=== PATIENT | female | born 1975 | race Caucasian/White ===

== ENCOUNTER → 2021-01-22 08:10 | Outpatient (CLI) | payer BC, SELFPAY ==
--- NOTE | 2021-01-22 08:16 | MM_ITS ---
PROCEDURE INFORMATION: Exam: MG Bilateral Screening 3D Mammography Exam date and time: 01/22/2021 8:16 AM Age: 45 years old Clinical indication: Screening mammogram TECHNIQUE: Imaging protocol: Bilateral screening tomosynthesis and 2D mammography including computer-aided detection (CAD) when performed. COMPARISON: No relevant prior studies available. FINDINGS: MAMMOGRAPHY: Breast composition: The breast tissue is heterogeneously dense, which may obscure small masses. Mass: None. Architectural distortion: No new or suspicious architectural distortion. Calcifications: No new or suspicious calcifications are present Asymmetric density: No new or suspicious asymmetric density is present Skin thickening: None. Axillary adenopathy: None. IMPRESSION: No mammographic evidence of malignancy. Recommend annual screening mammography unless otherwise clinically indicated. ASSESSMENT: BI-RADS category 1: Negative
== END ==
PROVIDERS: PCP Family Medicine; Visit Provider Obstetrics & Gynecology
DX: Z12.31 Encounter for screening mammogram for malignant neoplasm of breast (principal)
CPT/HCPCS: 77063; 77067

== ENCOUNTER → 2021-04-29 08:11 | Outpatient (CLI) | payer BC, SELFPAY | PROVIDERS: PCP Family Medicine; Visit Provider Nurse Practitioner | DX: U07.1 COVID-19 (principal) | CPT/HCPCS: C9803; U0003; U0005 ==

== ENCOUNTER → 2021-05-12 08:15 | Outpatient (POV) | payer BC, SELFPAY | PROVIDERS: Visit Provider Dermatology | DX: Z00.00 Encounter for general adult medical examination without abnormal findings (principal) ==

== ENCOUNTER → 2021-05-18 08:03 | Outpatient (CLI) | payer BC, SELFPAY | PROVIDERS: Visit Provider Nurse Practitioner | DX: Z20.822 Contact with and (suspected) exposure to COVID-19 (principal) | CPT/HCPCS: C9803; U0003; U0005 ==

== ENCOUNTER 2021-05-23 17:35 | Emergency (ER) | payer BC, SELFPAY ==
[2021-05-23 17:40] VITALS: BP 151/101; PULSE 96; RESP 24; TEMP 37.1; O2SAT 95; BMI 27.4
[2021-05-23 17:49] VITALS: BP 151/101; PULSE 96; RESP 24; TEMP 37.1; O2SAT 95
--- NOTE | 2021-05-23 17:49 | HMH.EDUTC ---
[facility] [place] Clinical Impression: Acute bronchitis Qualifiers: Bronchitis organism: unspecified organism Qualified Code(s): J20.9 - Acute bronchitis, unspecified Disposition: Home, Self-Care Condition on Discharge: Good Instructions: Acute Bronchitis Additional Instructions: Start antibiotic today. Be sure to complete entire prescription even if feeling better Tylenol and ibuprofen as needed for pain or fever Humidifier/vaporizer/hot steamy shower Follow-up with primary care this week. Follow-up immediately in the ER of the [facility] for new or worsening symptoms or no noticeable improvement over the next 48-72 hours. Stop smoking Start steroids today. Helps with inflammation therefore coughing and wheezing. Follow directions on package. Prescriptions: Albuterol Sulfate [Albuterol Sulfate Hfa] 6.7 gm IH Q4-6H 14 Days #1 each Transmission Status: Pending to [facility] Benzonatate [Benzonatate 100mg cap] 100 mg PO BID PRN 7 Days #14 cap PRN Reason: Cough Transmission Status: [facility] predniSONE [Prednisone 20mg Tab] 20 mg PO BID #10 tab Transmission Status: [facility] Azithromycin [Zithromax 250mg tab] 250 mg PO DIRECTED #6 tab Transmission Status: [facility] Referrals: Leonie Vazquez [Primary Care Provider] - Time of Disposition: 17:55 Medical Decision Making - Rajat Inquiry Pt receiving controlled substance: No Vital Signs: 05/23/21 17:40 Temperature 98.7 F Temperature Source Oral Pulse Rate [Left Brachial] 96 H Respiratory Rate 24 Blood Pressure [Left Arm] 151/101 H Blood Pressure Mean [Left Arm] 117 Blood Pressure Source [Left Arm] Automatic Cuff Blood Pressure Position [Left Arm] Sitting 02 Sat by Pulse Oximetry 95 Oxygen Delivery Method Room Air [facility] [place] - General Chief complaint: [facility] Stated complaint: head congestion, sinus Time Seen by Provider: 05/23/21 17:49 Mode of Arrival: Ambulatory Source of Information: Patient Limitations: No Limitations Description of Symptoms (Recalled from Triage Doc. by RN): PATIENT C/O COUGH AND CONGESTION SINCE LAST TUESDAY, STATES IT HAS GOTTEN WORSE OVER PAST 2 DAYS HEENT Symptoms (Recalled from RN notes): Yes Resp Symptoms (Recalled from RN notes): Yes Skin Symptoms (Recalled from RN notes): No MS Symptoms (Recalled from RN notes): No Functional Status (Recalled from RN notes): WNL - History of Present Illness Provider Complaint: 45 yr old female presents for coughing up yellow/green sputum,congestion, sinus pressure and sore throat since last sat - Related Data Home Medications Medication Instructions Recorded Confirmed Valacyclovir HCl [Valtrex] 500 mg PO DAILYP PRN 05/23/21 05/23/21 Previous Rx's Medication Instructions Recorded Albuterol Sulfate [Albuterol 6.7 gm IH Q4-6H 14 Days #1 each 05/23/21 Sulfate Hfa] Azithromycin [Zithromax 250mg 250 mg PO DIRECTED #6 tab 05/23/21 tab] Benzonatate [Benzonatate 100mg 100 mg PO BID PRN 7 Days #14 cap 05/23/21 cap] predniSONE [Prednisone 20mg 20 mg PO BID #10 tab 05/23/21 Tab] Allergies Allergy/AdvReac Type Severity Reaction Status Date / Time No Known Allergies Allergy Verified 05/23/21 17:48 - Worker's Comp Is this a Worker's Comp case?: No H History - Hepatitis A Screen Drug use history?: No High risk sexual behaviors?: No History of sexually transmitted infection?: No Currently employed?: No Childcare worker?: No Do you have indoor plumbing?: Yes Do you have electricity?: Yes Attestation statement:: This patient has been screened for Hepatitis A risk factors. I have reviewed the patient's past medical history: Yes ROS Obtained: Yes Systems reviewed as appropriate & no additional complaints - Constitutional Constitutional: Reports system reviewed and no additional complaints, except as docu, Denies fatigue, Denies fever(
== END 2021-05-23 18:00 | disposition home or self-care (01) ==
PROVIDERS: Emergency Provider Nurse Practitioner Family; PCP Family Medicine
DX: J40 Bronchitis, not specified as acute or chronic (principal)
CPT/HCPCS: 99213; G0463

== ENCOUNTER 2021-07-27 13:31 | Emergency (ER) | payer BC, SELFPAY ==
[2021-07-27 13:35] VITALS: BP 150/93; PULSE 93; RESP 18; TEMP 36.7; O2SAT 100; BMI 27.4
--- NOTE | 2021-07-27 13:59 | HMH.EDUTC ---
[facility] [place] Disposition Clinical Impression: Acute bronchitis Qualifiers: Bronchitis organism: unspecified organism Qualified Code(s): J20.9 - Acute bronchitis, unspecified Sinusitis Qualifiers: Sinusitis location: unspecified location Chronicity: unspecified Qualified Code(s): J32.9 - Chronic sinusitis, unspecified Disposition: Home, Self-Care Condition on Discharge: Good Instructions: Sinusitis, Acute Bronchitis, DI for Sinusitis, DI for Acute Bronchitis Additional Instructions: ? Start antibiotic today. Be sure to complete entire prescription even if feeling better ? Monitor temp. Tylenol every 4 hours as needed and / or ibuprofen every 6 hours as needed ( As long as your primary care physician has told you that it ok to take both. For fever/aches/pains ER if no less than 101 despite Tylenol or Motrin ? Humidifier/vaporizer or hot steamy shower ? Inhaler every 4-6 hours as needed like we discussed. If unsure how to use it, ask pharmacist to demonstrate how. Should help open airways and improve cough, wheezing, and shortness of breath *Tessalon Perles will not cause drowsiness but use at bedtime to help stop cough so that you may get some rest. *Start steroid today. Helps with inflammation therefore, cough and wheezing. Follow directions on the package. Reviewed side effects. Patient reports taking them before. Follow up IMMEDIATELY for new or worsening of symptoms OR no noticeable improvement over the next 48-72 hours. 911 immediately for any life threatening symptoms such as chest pain or difficulty breathing Prescriptions: Benzonatate [Benzonatate 100mg cap] 100 mg PO Q8HP PRN #15 cap PRN Reason: Cough Transmission Status: Pending to [facility] Amoxicillin/Potassium Clav [Amox-Clav 875-125 mg Tablet] 1 tab PO BID #20 tab Transmission Status: Pending to [facility] predniSONE [Prednisone 20mg Tab] 20 mg PO BID 5 Days #10 tab Transmission Status: Pending to [facility] Referrals: Leonie Vazquez [Primary Care Provider] - As needed Forms: Work/School Release Medical Decision Making - Rajat Inquiry Pt receiving controlled substance: No Rajat was queried for this patient: No Vital Signs: 07/27/21 13:35 Temperature 98.0 F Temperature Source Oral Pulse Rate [Right Brachial] 93 H Respiratory Rate 18 Blood Pressure [Right Arm] 150/93 H Blood Pressure Mean [Right Arm] 112 Blood Pressure Source [Right Arm] Automatic Cuff Blood Pressure Position [Right Arm] Sitting 02 Sat by Pulse Oximetry 100 Oxygen Delivery Method Room Air [facility] [place] HPI - General Stated complaint: congestion, cough Time Seen by Provider: 07/27/21 13:59 Mode of Arrival: Ambulatory Source of Information: Patient Limitations: No Limitations Description of Symptoms (Recalled from Triage Doc. by RN): PATIENT C/O COUGH, SINUS AND CHEST CONGESTION SINCE TUESDAY HEENT Symptoms (Recalled from RN notes): Yes Resp Symptoms (Recalled from RN notes): Yes Skin Symptoms (Recalled from RN notes): No MS Symptoms (Recalled from RN notes): No Functional Status (Recalled from RN notes): WNL - History of Present Illness Provider Complaint: Patient states that she has been having cough, sinus pain and pressure and feeling like it is trying to move into her chest for about week States that at times she will cough up small amount of mucous States that she feels like it is draining in her throat States that today she was having some pressure behind her eyes so she came in - Related Data Previous Rx's Medication Instructions Recorded Amoxicillin/Potassium Clav 1 tab PO BID #20 tab 07/27/21 [Amox-Clav 875-125 mg Tablet] Benzonatate [Benzonatate 100mg 100 mg PO Q8HP PRN #15 cap 07/27/21 cap] predniSONE [Prednisone 20mg 20 mg PO BID 5 Days #10 tab 07/27/21 Tab] Allergies Allergy/AdvReac Type Severity Reaction Status Date / Time No Known Allergies Allergy Verified 05/23/21 17:48 - Worker's Comp Is
[2021-07-27 14:12] VITALS: BP 150/93; PULSE 93; RESP 18; TEMP 36.7; O2SAT 100
== END 2021-07-27 14:13 | disposition home or self-care (01) ==
PROVIDERS: Emergency Provider Nurse Practitioner; PCP Family Medicine
DX: J20.9 Acute bronchitis, unspecified (principal); J32.9 Chronic sinusitis, unspecified
CPT/HCPCS: 99212; G0463

== ENCOUNTER 2022-03-10 08:02 | Emergency (ER) | payer BC, SELFPAY ==
--- NOTE | 2022-03-10 08:16 | EXP.UTC ---
Discharge Plan Disposition Patient Disposition: Home, Self-Care Condition: Good Prescriptions Prescriptions: New benzonatate [benzonatate] 100 mg capsule 100 mg PO TIDP PRN (Reason: Cough) Qty: 30 0RF methylprednisolone 4 mg Tablets,Dose Pack 4 mg PO DIRECTED Qty: 21 0RF No Action prednisone 20 MG tablet 20 mg PO BID 5 Days Qty: 10 0RF benzonatate 100 MG capsule 100 mg PO Q8HP PRN (Reason: Cough) Qty: 15 0RF amoxicillin-pot clavulanate 1 EACH tablet 1 tab PO BID Qty: 20 0RF Referrals Follow up/Referrals: Leonie Vazquez [Primary Care Provider] - See instructions Activity Restrictions/Add. Instructions Additional Instructions/Restrictions: Drink plenty of fluids. Take tylenol or ibuprofen for pain or fever. Take the medications as directed. Follow up with your regular doctor. GO TO THE ER FOR ANY WORSENING SYMPTOMS Clinical Impressions Clinical Impression: Influenza A Stand Alone Forms Stand Alone Forms: Work/School Release Instructions Patient Instructions: DI for Influenza -- Adult Discharge ED Provider: Aaron Solis [facility] General Stated complaint: cough, body aches Time Seen by Provider: 03/10/22 08:16 History of Present Illness Provider Complaint: She states that for the past 2 days she has had sore throat, chills, body aches and low grade fever. Related Data Previous Rx's Medication Instructions Recorded amoxicillin 875 mg-potassium 1 tab PO BID #20 tabs 07/27/21 clavulanate 125 mg tablet benzonatate 100 mg capsule 100 mg PO Q8HP PRN Cough #15 caps 07/27/21 prednisone 20 mg tablet 20 mg PO BID 5 days #10 tabs 07/27/21 benzonatate 100 mg capsule 100 mg PO TIDP PRN Cough #30 caps 03/10/22 methylprednisolone 4 mg tablets in 4 mg PO DIRECTED #21 tabs 03/10/22 a dose pack Allergies Allergy/AdvReac Type Severity Reaction Status Date / Time No Known Allergies Allergy Verified 03/10/22 08:25 [facility] Disclaimer: The information contained in this section may have been updated after the patient was seen, as this information can be updated by other users. Social History Smoking Status: Never smoker alcohol intake: never current occupational status: other Travel in the last 8 weeks: None ROS Obtained: Yes All systems reviewed & no additional complaints except as documented Constitutional Constitutional: Reports chills and Reports fever(s) Eyes Eyes: Denies eye discharge ENT Ears, Nose, Mouth, and Throat: Reports as per HPI Cardiovascular Cardiovascular: Denies chest pain Respiratory Respiratory: Denies chest congestion and Reports cough Gastrointestinal Gastrointestingal: Reports nausea; Denies abdominal pain, constipation, cramping, diarrhea or vomiting Musculoskeletal Musculoskeletal: Denies arthralgias Integumentary/Breasts Skin/Breast: Denies rash Neurologic Neurologic: Denies paresthesias Physical Exam General General appearance: alert and in no apparent distress Head Head exam: atraumatic, normocephalic and normal inspection Eye Eye exam: Present normal appearance, PERRL and EOMI ENT ENT exam: Present normal exam, normal oropharynx, mucous membranes moist, TM's normal bilaterally and normal external ear exam Neck Neck exam: Present normal inspection, full ROM and trachea midline; Absent meningismus or lymphadenopathy Chest Chest inspection: Present normal inspection and symmetric chest wall rise; Absent tenderness Respiratory Respiratory exam: Present normal lung sounds bilaterally; Absent respiratory distress Cardiovascular Cardiovascular exam: Present regular rate and normal rhythm; Absent JVD Abdominal Exam Abdominal exam: Present soft and normal bowel sounds; Absent distention, tenderness or guarding Extremities Exam Extremities exam: Present normal inspection, full ROM and normal capillary refill; Absent calf tenderness Back Exam Back exam: Present nor
[2022-03-10 08:22] LABS: UTC Influenza A Antigen Positive (Negative); UTC Influenza B Antigen Negative (Negative)
[2022-03-10 08:23] VITALS: BP 116/86; PULSE 77; RESP 17; TEMP 36.8; O2SAT 98; BMI 27.8
[2022-03-10 08:30] VITALS: BP 116/86; PULSE 77; RESP 17; TEMP 36.8
== END 2022-03-10 08:33 | disposition home or self-care (01) ==
PROVIDERS: Emergency Provider Nurse Practitioner Family; PCP Family Medicine
DX: J10.1 Influenza due to other identified influenza virus with other respiratory manifestations (principal)
CPT/HCPCS: 87804; 99212; G0463

== ENCOUNTER 2022-07-30 09:14 | Emergency (ER) | payer BC, SELFPAY ==
[2022-07-30 09:20] VITALS: BP 140/87; PULSE 82; RESP 18; TEMP 36.7; O2SAT 98; BMI 27.1
--- NOTE | 2022-07-30 09:30 | EXP.UTC ---
Discharge Plan Disposition Patient Disposition: Home, Self-Care Condition: Good Prescriptions Prescriptions: New prednisone 10 mg tablet 10 mg PO BID 4 Days Qty: 8 0RF ciprofloxacin HCl 0.3 % drops See Rx Instructions .ROUTE .COMPLEX Qty: 5 0RF Rx Instructions: put 1 drp in both eyes every 2hr x2days; then 4 times/day x5days fluticasone propionate [fluticasone propionate] 50 mcg/actuation spray,suspension 2 spr intranasal DAILY 30 Days Qty: 120 0RF Referrals Follow up/Referrals: Provider,Referral, MD [Primary Care Provider] - See instructions Activity Restrictions/Add. Instructions Additional Instructions/Restrictions: Drink plenty of fluids. Take tylenol or ibuprofen for pain or fever. Take the medications as directed. Follow up with your regular doctor. GO TO THE ER FOR ANY WORSENING SYMPTOMS Clinical Impressions Clinical Impression: Viral illness, Conjunctivitis, Allergic rhinitis Stand Alone Forms Stand Alone Forms: Work/School Release Instructions Patient Instructions: DI for Viral Syndrome, Prednisone, Fluticasone Nasal [place] Discharge ED Provider: Aaron Solis [facility] General Stated complaint: eye pain Mode of Arrival: Ambulatory Source of Information: Patient Limitations: No Limitations Time Seen by Provider: 07/30/22 09:30 Description of Symptoms (Recalled from Triage Doc. by RN): PATIENT C/O POSSIBLE INFECTION TO BILATERAL EYES AND COLD SYMPTOMS X 4 DAYS HEENT Symptoms (Recalled from RN notes): Yes Resp Symptoms (Recalled from RN notes): No Skin Symptoms (Recalled from RN notes): No MS Symptoms (Recalled from RN notes): No Functional Status (Recalled from RN notes): WNL History of Present Illness Provider Complaint: She c/o bilateral eye irritation for the past 2 days. She has had what she describes as a viral cold, but once her eyes started burning she wanted to get checked. She denies any eye injury or foreign body. Related Data Previous Rx's Medication Instructions Recorded ciprofloxacin HCl 0.3 % eye drops See Rx Instructions ophthalmic 07/30/22 (eye) .COMPLEX #5 mL fluticasone propionate 50 2 spr intranasal DAILY 30 days 07/30/22 mcg/actuation nasal #120 ea spray,suspension prednisone 10 mg tablet 10 mg PO BID 4 days #8 tabs 07/30/22 Allergies Allergy/AdvReac Type Severity Reaction Status Date / Time No Known Allergies Allergy Verified 03/10/22 08:25 Worker's Comp Is this a Worker's Comp case?: No [facility] Disclaimer: The information contained in this section may have been updated after the patient was seen, as this information can be updated by other users. Social History Smoking Status: Never smoker alcohol intake: never current occupational status: other Travel in the last 8 weeks: None ROS Obtained: Yes All systems reviewed & no additional complaints except as documented Constitutional Constitutional: Reports poor appetite Eyes Eyes: Reports eye discharge ENT Ears, Nose, Mouth, and Throat: Reports as per HPI Cardiovascular Cardiovascular: Reports system reviewed and no additional complaints, except as documented and Denies chest pain Respiratory Respiratory: Denies shortness of breath, Denies chest congestion, Reports cough, Denies stridor and Denies wheezing Gastrointestinal Gastrointestingal: Reports system reviewed and no additional complaints, except as documented; Denies abdominal pain, diarrhea or vomiting Musculoskeletal Musculoskeletal: Reports system reviewed and no additional complaints, except as documented and Denies arthralgias Integumentary/Breasts Skin/Breast: Reports system reviewed and no additional complaints, except as documented and Denies rash Neurologic Neurologic: Denies paresthesias Allergic/Immunologic Allergic/Immunologic: Denies wheezing Physical Exam General General appearance: alert and in no apparent distress Head Head exam: at
[2022-07-30 09:45] VITALS: BP 140/87; PULSE 82; RESP 18; TEMP 36.7; O2SAT 98
== END 2022-07-30 09:50 | disposition home or self-care (01) ==
PROVIDERS: Emergency Provider Nurse Practitioner Family
DX: H10.33 Unspecified acute conjunctivitis, bilateral (principal); J30.9 Allergic rhinitis, unspecified; B34.9 Viral infection, unspecified
CPT/HCPCS: 99212; 99214; G0463

== ENCOUNTER → 2022-12-06 08:13 | Outpatient (CLI) | payer BC, SELFPAY ==
--- NOTE | 2022-12-06 08:18 | MM_ITS ---
PROCEDURE INFORMATION: Exam: MG Bilateral Screening 3D Mammography Exam date and time: 12/06/2022 8:15 AM Age: 47 years old Clinical indication: Screening examination TECHNIQUE: Imaging protocol: Bilateral Screening tomosynthesis and 2D mammography including computer-aided detection (CAD) when performed. COMPARISON: MG MM DIG SCREENING MAMM BI W/CAD 01/22/2021 8:32 AM FINDINGS: MAMMOGRAPHY: Breast composition: The breasts are heterogeneously dense, which may obscure small masses. Mass: None. Architectural distortion: None. Calcifications: No suspicious calcifications. Asymmetric density: None. Skin thickening: None. Axillary adenopathy: None. IMPRESSION: No mammographic evidence of malignancy. Annual screening is recommended unless otherwise clinically indicated. ASSESSMENT: BI-RADS Category 1: Negative
== END ==
PROVIDERS: PCP Student in an Organized Health Care Education/Training Program; Visit Provider Student in an Organized Health Care Education/Training Program
DX: Z12.31 Encounter for screening mammogram for malignant neoplasm of breast (principal)
CPT/HCPCS: 77063; 77067

== ENCOUNTER 2023-08-14 09:40 | Emergency (ER) | payer BC, SELFPAY ==
[2023-08-14 10:20] VITALS: BP 134/92; PULSE 87; RESP 17; TEMP 36.6; O2SAT 99; BMI 28.4
--- NOTE | 2023-08-14 11:03 | EXP.UTC ---
Discharge Plan Disposition Patient Disposition: Home, Self-Care Condition: Good Prescriptions Prescriptions: New azithromycin 250 mg tablet 250 mg PO DIRECTED Qty: 6 0RF Rx Instructions: Take two (2) tablets on day #1, then one (1) tablet day #2 thru #5 No Action fluoxetine 20 mg capsule 20 mg PO DAILY cyclobenzaprine 5 mg tablet 5 mg PO DAILY fluticasone propionate 50 mcg/actuation spray,suspension 2 spray intranasal DAILY 30 Days Qty: 120 0RF albuterol sulfate 90 mcg/actuation HFA aerosol inhaler 1 inh inhalation QID Qty: 6.7 2RF Zepbound 2.5 mg/0.5 mL pen injector See Rx Instructions .ROUTE .COMPLEX Patient Comments: INJECT 2.5 MG UNDER THE SKIN ONCE WEEKLY Rx Instructions: INJECT 2.5 MG UNDER THE SKIN ONCE WEEKLY Referrals Follow up/Referrals: Leonie Vazquez [Primary Care Provider] - See instructions Activity Restrictions/Add. Instructions Additional Instructions/Restrictions: Start antibiotics today be sure to take it as ordered with the full length of time although you should start feeling better in 24-48 hours. Change toothbrush and toothpaste 24-48 hours after starting antibiotics Tylenol or Motrin as needed for fever or pain Encourage fluids, water, Gatorade, Powerade, try cold fluids, popsicles, ice cream will make it feel better You are contagious for 24 hours. Avoid kissing anyone, no eating or drinking after anyone. You are contagious. Follow-up the ER for new or worsening symptoms or no noticeable improvement over the next 24-48 hours. Follow-up with PCP this week. Clinical Impressions Clinical Impression: Strep sore throat, Exposure to strep throat Instructions Patient Instructions: DI for Strep Throat Discharge ED Provider: Yuri ([facility] [place] General Stated complaint: weakness, body aches, h/a, cough Mode of Arrival: Ambulatory Source of Information: Patient Limitations: No Limitations Time Seen by Provider: 08/14/23 11:03 Description of Symptoms (Recalled from Triage Doc. by RN): Pt's symptoms are fatigue, body aches, LÓPEZ, and cough. HEENT Symptoms (Recalled from RN notes): Yes Resp Symptoms (Recalled from RN notes): No Skin Symptoms (Recalled from RN notes): No MS Symptoms (Recalled from RN notes): No Functional Status (Recalled from RN notes): n/a History of Present Illness Provider Complaint: 47 yr old female presents for c/o fatigue, body aches, LÓPEZ, and cough. children have strep Related Data Home Medications Medication Instructions Recorded Confirmed cyclobenzaprine 5 mg tablet 5 mg PO DAILY 02/28/23 08/14/23 fluoxetine 20 mg capsule 20 mg PO DAILY 02/28/23 08/14/23 tirzepatide (weight loss) 2.5 See Rx Instructions .Route .COMPLEX 08/14/23 08/14/23 mg/0.5 mL subcutaneous pen injector (Zepbound) Previous Rx's Medication Instructions Recorded albuterol sulfate 90 mcg/actuation 1 inh inhalation QID #6.7 grams 02/28/23 aerosol inhaler fluticasone propionate 50 2 spray intranasal DAILY 30 days 02/28/23 mcg/actuation nasal #120 ea spray,suspension azithromycin 250 mg tablet 250 mg PO DIRECTED #6 tabs 08/14/23 Allergies Allergy/AdvReac Type Severity Reaction Status Date / Time No Known Allergies Allergy Verified 08/14/23 10:50 Worker's Comp Is this a Worker's Comp case?: No [facility] Disclaimer: The information contained in this section may have been updated after the patient was seen, as this information can be updated by other users. Medical History , [facility]) Eczema Surgical History , [facility]) Hx of section Family History , [employer]) No significant family history Social History , [employer]) Smoking Status: Never smoker alcohol intake: never current occupational status: other Travel in the last 8 weeks: None ROS Obtained: Yes All systems reviewed & no additional complaints except as documented Constitutional Constitutional: Reports system reviewed and no additional complaints, except as documented, Reports as per HPI, Reports body ache and Reports headache(s) Eyes Eyes: Reports system reviewed and no additional complaints, except as documented ENT Ears, Nose, Mouth, and Throat: Reports system reviewed and no additional complaints, except as documented, Reports as per HPI, Reports headache(s), Reports nasal congestion, Reports nasal discharge, Reports sinus pain, Reports sinus pressure and Reports sore throat Cardiovascular Cardiovascular: Reports system reviewed and no additional complaints, except as documented Respiratory Respiratory: Reports system reviewed and no additional complaints, except as documented, Reports as per HPI and Reports cough Musculoskeletal Musculoskeletal: Reports system reviewed and no additional complaints, except as documented Integumentary/Breasts Skin/Breast: Reports system reviewed and no additional complaints, except as documented Neurologic Neurologic: Reports system reviewed and no additional complaints, except as documented and Reports headache(s) Endocrine Endocrine: Reports system reviewed and no additional complaints, except as documented Hematologic/Lymphatic Henatologic/Lymphatic: Reports system reviewed and no additional complaints, except as documented Allergic/Immunologic Allergic/Immunologic: Reports system reviewed and no additional complaints, except as documented Physical Exam General General appearance: alert and in no apparent distress Head Head exam: atraumatic Eye Eye exam: Present normal appearance and PERRL ENT ENT exam: Present mucous membranes moist and TM's normal bilaterally Expanded ENT Exam TM/Canal exam: Right TM: erythema and effusion Comment: pharynx red, exudate Respiratory Respiratory exam: Present normal lung sounds bilaterally Cardiovascular Cardiovascular exam: Present regular rate and normal rhythm Neurological Exam Neurological exam: Present alert and oriented X3 Skin Skin exam: Present warm and intact Medical Decision Making Medical Records Medical records reviewed: Yes I reviewed the patient's medical records. Rajat Inquiry Pt receiving controlled substance: No Rajat was queried for this patient: No Vital Signs: 08/14/23 10:20 Temperature 97.9 F Temperature Source Oral Pulse Rate [Right Radial] 87 Respiratory Rate 17 Blood Pressure [Right Arm] 134/92 H Blood Pressure Mean [Right Arm] 106 Blood Pressure Source [Right Arm] Automatic Cuff Blood Pressure Position [Right Arm] Sitting 02 Sat by Pulse Oximetry 99 Oxygen Delivery Method Room Air Lab Data Lab results reviewed: Yes I reviewed the patient's lab results.
[2023-08-14 11:04] LABS: UTC Influenza A Antigen Negative (Negative); UTC Influenza B Antigen Negative (Negative)
[2023-08-14 11:12] LABS: UTC Strep Screen (Rapid) Negative (Negative)
[2023-08-14 11:34] VITALS: BP 134/92; PULSE 87; RESP 17; TEMP 36.6; O2SAT 99
== END 2023-08-14 11:34 | disposition home or self-care (01) ==
PROVIDERS: Emergency Provider Nurse Practitioner Family; PCP Family Medicine
DX: J02.0 Streptococcal pharyngitis (principal); R51.9 Headache, unspecified; R05.9 Cough, unspecified; R53.83 Other fatigue
CPT/HCPCS: 87804; 87880; 99212; 99214; G0463